=== PATIENT | male | born 1990 ===

== ENCOUNTER 2017-09-26 21:41 | Observation (INO) | payer OTHER ==
--- NOTE | 2017-09-26 23:03 | C.PDOC ---
"History Of Present Illness 27 year old male presents to the ED c/o bilateral feet pain. Patient reports that yesterday he jumped of a porch approximately 1 story height. Patient landed on both his feet, initially able to bear weight now unable to do it. Patient states his left foot is worse than the right one. Patient denies other injuries, back pain, weakness, numbness. Time Seen by Provider: 09/26/17 21:55 Chief Complaint (Nursing): Lower Extremity Problem/Injury History Per: Patient History/Exam Limitations: no limitations Onset/Duration Of Symptoms: Days Current Symptoms Are (Timing): Still Present Recent travel outside of the [place]: No Additional History Per: Patient - Ankle/Foot Description Of Injury: Struck Against Object Currently Unable To: Bear Weight Past Medical History Reviewed: Historical Data, Nursing Documentation, Vital Signs Vital Signs: Last Vital Signs Temp 98.1 F 09/27/17 02:30 Pulse 81 09/27/17 02:30 Resp 20 09/27/17 02:30 BP 136/84 09/27/17 02:30 Pulse Ox 99 09/27/17 02:30 - Medical History PMH: No Chronic Diseases Surgical History: No Surg Hx Family History: States: Unknown Family Hx - Social History Hx Alcohol Use: Yes Hx Substance Use: No - Immunization History Hx Tetanus Toxoid Vaccination: No Hx Influenza Vaccination: No Hx Pneumococcal Vaccination: No Review Of Systems Gastrointestinal: Negative for: Nausea, Vomiting, Abdominal Pain Musculoskeletal: Positive for: Foot Pain (b/l). Negative for: Back Pain Skin: Negative for: Rash Neurological: Negative for: Weakness, Numbness Physical Exam - Physical Exam Appears: Non-toxic, No Acute Distress Skin: Normal Color, Warm, Dry Head: Atraumatic, Normacephalic Eye(s): bilateral: Normal Inspection Oral Mucosa: Moist Neck: Normal Back: Normal Inspection, No Vertebral Tenderness, No Paraspinal Tenderness Extremity: Normal ROM, Tenderness (bilateral calcaneal area), Capillary Refill ( < 2 seconds), No Deformity, No Swelling, Other (achiles tendon area normal bilaterally ) Extremity: Bilateral: Normal Color And Temperature Pulses: Left Dorsalis Pedis: Normal, Right Dorsalis Pedis: Normal Neurological/Psych: Oriented x3, Normal Speech, Normal Motor, Normal Sensation Gait: Unable To Assess ED Course And Treatment - Laboratory Results Result Diagrams: 09/27/17 02:17 09/27/17 02:17 O2 Sat by Pulse Oximetry: 98 (ON RA) Pulse Ox Interpretation: Normal - Other Rad Left heel X-Ray X-Ray: Read By Radiologist Interpretation: EXAM: XR Left Calcaneus, 2 or More Views. CLINICAL HISTORY: 27 years old, male; Injury or trauma; Fall; Initial encounter; Abrasion; Foot; Bilateral; Additional info: Pain b/l feet, jumped one story. TECHNIQUE: Lateral and plantar views of the left calcaneus. COMPARISON: No relevant prior studies available. FINDINGS: Bones/joints: Comminuted left calcaneal fracture, involving the posterior/inferior calcaneus. No. evident extension into the the imaged subtalar joints. No dislocation. Soft tissues: Soft tissue swelling along the plantar aspect of the calcaneus. No radiopaque foreign. body. IMPRESSION: Comminuted left calcaneal fracture without evident intra- articular extension. Recommend orthopedic. consultation. Consider spine imaging in the setting of back pain, given the extensive force required to. previous this fracture. . EXAM : XR Right Calcaneus, 2 or More Views. CLINICAL HISTORY: 27 years old, male; Injury or trauma; Fall; Initial encounter; Abrasion; Foot; Bilateral; Additional info: Pain b/l feet, jumped one story. TECHNIQUE: ROXANN PALMER | Preliminary Radiology Report. CONFIDENTIALITY STATEMENT. This report is intended only for the use of the referring physician, and only in accordance with law, If you received this in error, call [phone]. Page 2 of 2. Lateral and plantar views of the right calcaneus. COMPARISON: No relevant prior studies available. FINDINGS: Bones/joints: Comminuted right calcaneal fracture, involving the posterior/inferior calcaneus. No. evident extension into the the imaged subtalar joints. No dislocation. Soft tissues: Soft tissue swelling along the plantar aspect of the calcaneus. No radiopaque foreign. body. IMPRESSION: Comminuted right calcaneal fracture without evident intra-articular extension. Recommend. orthopedic consultation. Consider spine imaging in the setting of back pain, given the extensive force. required to previous this fracture. Thank you for allowing us to participate in the care of your patient. Dictated and Authenticated by: Dale Tamez DO. 09/26/2017 11:06 PM Eastern Time ([place] & [place]) - CT Scan/US CT lower extremities Other Rad Studies (CT/US): Read By Radiologist, Radiology Report Reviewed CT/US Interpretation: EXAM: CT Left Lower Extremity Without Intravenous Contrast. CLINICAL HISTORY: 27 years old, male; Pain; Ankle and heel; Bilateral; Additional info: B/l calcaneal fractures on xray. TECHNIQUE: Axial computed tomography images of the left lower extremity without intravenous contrast. All CT. scans at this facility use at least one of these dose optimization techniques: automated exposure. control; mA and/or kV adjustment per patient size (includes targeted exams where dose is matched to. clinical indication); or iterative reconstruction. Coronal and sagittal reformatted images were created and reviewed. COMPARISON: No relevant prior studies available. FINDINGS: Bones/joints: Acute comminuted fracture of the left calcaneus is posterior/ medial aspect. No. dislocation. Soft tissues: Soft tissue swelling in the hindfoot. IMPRESSION: Acute fracture of the left calcaneus is posterior/ medial aspect. . EXAM: CT Right Lower Extremity Without Intravenous Contrast. EXAM DATE/TIME: 09/26/2017 11:12 PM. ROXANN PALMER | Preliminary Radiology Report. CONFIDENTIALITY STATEMENT. This report is intended only for the use of the referring physician, and only in accordance with law, If you received this in error, call [phone]. Page 2 of 2. CLINICAL HISTORY: 27 years old, male; Pain; Ankle and heel; Bilateral; Additional info: B/l calcaneal fractures on xray. TECHNIQUE: Axial computed tomography images of the right lower extremity without intravenous contrast. All CT. scans at this facility use at least one of these dose optimization techniques: automated exposure. control; mA and/or kV adjustment per patient size (includes targeted exams where dose is matched to. clinical indication); or iterative reconstruction. Coronal and sagittal reformatted images were created and reviewed. COMPARISON: CR - HEEL 2 VIEWS BI 2017-09-26 22:15. FINDINGS: Bones/joints: Acute comminuted fracture of the right calcaneus is posterior/ medial aspect. No. dislocation. Soft tissues: Soft tissue swelling in the hindfoot. IMPRESSION: Acute fracture of the right calcaneus is posterior/ medial aspect. Thank you for allowing us to participate in the care of your patient. Dictated and Authenticated by: Víctor Moore MD. 09/27 1:04 AM Eastern Time ([place] & [place]) Progress Note: Plan: - left heel X-Ray. - Motrin 600 mg PO. - Motrin 800 mg PO. Paged podiatry resident who came to the ED and placed the patient on bilateral posterior splints. Patient will be admitted for possible surgery tomorrow with podiatry. Spoke with Dr. Carbajal for admission, [facility] agrees to accept the patient to his service Disposition - Disposition Disposition: HOSPITALIZED Disposition Time: 02:15 Condition: GOOD - Clinical Impression Clinical Impression: Bilateral calcaneal fractures - PA / ASSEMBLER BRAZER / Resident Statement MD/DO has reviewed & agrees with the documentation as recorded. - Scribe Statement The provider has reviewed the documentation as recorded by the Scribe Valentin Ko All medical record entries made by the Scribe were at my direction and personally dictated by me. I have reviewed the chart and agree that the record accurately reflects my personal performance of the history, physical exam, medical decision making, and the department course for this patient. I have also personally directed, reviewed, and agree with the discharge instructions and disposition."
--- NOTE | 2017-09-27 01:59 | CP.PCM.CON ---
History of Present Illness - History of Present Illness History of Present Illness: Podiatry Consult Note for Dr. Alexandra 27M with no known PMHx seen and evaluated in ED for b/l heel pain after jumping from a second story balcony yesterday afternoon. Patient states that he landed on concrete without shoes and was immediately unable to weight bear on either side. He states that his pain is improved today over yesterday but he is still unable to bear weight. He states that he has been icing, elevating and applying heat to both heels and has not taken any oral medication to try and alleviate his pain. He denies pain to any other part of his foot, ankle, leg, knee, hip or lower back. He denies any tingling or numbness to either foot. Patient is AAO x 3 and NAD at time of visit accompanied by his girlfriend and a police booking officer. Patient is seen cuffed to bed at time of examination. Patient denies any further pedal complaints at this time. Denies any recent N/V/F/C/CP/SOB/D/ posterior calf pain Meds: Denies All: NKDA PSH: Denies FH: Unremarkable SH: Denies tobacco use, social EtOH, social marijuana use Review of Systems - Review of Systems All systems: reviewed and no additional remarkable complaints except Review of Systems: as per HPI Past Patient History - Past Social History Smoking Status: Never Smoked - PSYCHIATRIC Hx Substance Use: No - SURGICAL HISTORY Hx Surgeries: No Meds Allergies/Adverse Reactions: Allergies Allergy/AdvReac Type Severity Reaction Status Date / Time No Known Allergies Allergy Unverified 09/26/17 21:50 Physical Exam - Constitutional Appears: Well, Non-toxic, No Acute Distress - Extremities Exam Additional comments: LE focused exam: Vasc: DP/PT pulses fully palpable 2/4 b/l. Skin temperature warm to warm from proximal to distal. CFT < 3 seconds to all digits. Minimal edema noted to b/l heels Neuro: Epicritic and protective sensation grossly intact b/l Derm: Minimal ecchymosis noted to b/l heels. No fracture blisters appreciated b/ l. Otherwise no open lesions, wounds, maceration, xerosis, abnormal pigmentation or abnormal growths noted b/l MSK: POP to b/l heels. Pain with heel squeeze b/l. No POP to digits, lis franc joint/ligament, medial or lateral malleoli, achilles tendon, navicular tuberosity or fifth metatarsal base. ROM at ankle and STJ limited secondary to guarding. MMT limited secondary to guarding. No gross deformities appreciated. - Neurological Exam Neurological exam: Alert, Oriented x3 - Psychiatric Exam Psychiatric exam: Normal Affect, Normal Mood Results - Vital Signs Recent Vital Signs: Last Vital Signs Temp 98.4 F 09/26/17 21:44 Pulse 104 H 09/26/17 21:44 Resp 20 09/26/17 21:44 BP 146/85 09/26/17 21:44 Pulse Ox 98 09/27/17 01:23 Assessment & Plan - Assessment and Plan (Free Text) Assessment: 27M seen in ED for b/l displaced calcaneal fractures Plan: Patient seen and evaluated Plan discussed with attending Dr. Alexandra Xrays reviewed: B/l fractures of the medial calcaneal tubercle with mild displacement CT reviewed: B/l fractures of the medial calcaneal tubercle with mild displacement Posterior splint appled to b/l LE Patient admitted to floors under Hospitalist care Will f/u with patient and Dr. Alexandra in AM to determine possible surgical intervention Medical optimization needed Patient to remain NWB at all time Ice and elevated as much as possible Podiatry will continue to follow - Date & Time Date: 09/27/17 Time: 02:05
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
[2017-09-27 02:29] LABS: INR 1.13 (0.92-1.08); PROTHROMBIN TIME 12.4 SECONDS (9.7-12.2)
[2017-09-27] MEDS: Sodium Chloride 0.9% 1,000 ML IV SCH ×2 (02:30→15:49)
[2017-09-27 02:33] LABS: HEMOGLOBIN 16.3 g/dL (12.0-18.0); MEAN CELL VOLUME 91.7 fL (80.0-94.0); MEAN CORPUSCULAR HEMOGLOBIN 31.7 pg (27.0-31.0); MEAN CORPUSCULAR HGB CONC 34.6 g/dL (33.0-37.0); RBC 5.15 Mil/uL (4.40-5.90); WHITE BLOOD COUNT 8.9 K/uL (4.8-10.8)
[2017-09-27 02:34] LABS: BASO % 0.5 % (0.0-2.0); EOS # 0.1 K/uL (0.0-0.7); EOS % 0.6 % (0.0-4.0); LYMPH # 1.1 K/uL (1.0-4.3); LYMPH % 12.8 % (20.0-40.0); MEAN PLATELET VOLUME 8.7 fL (7.2-11.7); MONO # 0.7 K/uL (0.0-0.8); MONO % 7.5 % (0.0-10.0); RED CELL DISTRIBUTION WIDTH 12.9 % (11.5-14.5)
[2017-09-27 02:50] LABS: ALB/GLOB RATIO 1.6 (1.0-2.1); ALBUMIN 4.6 g/dL (3.5-5.0); ALT/SGPT 37 U/L (21-72); AST/SGOT 23 U/L (17-59); BLOOD UREA NITROGEN 16 mg/dL (9-20); CALCIUM 9.4 mg/dl (8.6-10.4); GFR AFRICAN-AMERICAN > 60; GFR NON-AFRICAN AMERICAN > 60
[2017-09-27 06:51] LABS: BASO # 0.1 K/uL (0.0-0.2); BASO % 0.7 % (0.0-2.0); EOS # 0.1 K/uL (0.0-0.7); EOS % 1.2 % (0.0-4.0); HEMOGLOBIN 15.6 g/dL (12.0-18.0); LYMPH # 1.6 K/uL (1.0-4.3); LYMPH % 19.8 % (20.0-40.0); MEAN CELL VOLUME 92.3 fL (80.0-94.0); MEAN CORPUSCULAR HEMOGLOBIN 32.1 pg (27.0-31.0); MEAN CORPUSCULAR HGB CONC 34.7 g/dL (33.0-37.0); MEAN PLATELET VOLUME 9.2 fL (7.2-11.7); MONO # 0.7 K/uL (0.0-0.8); MONO % 8.9 % (0.0-10.0); NEUT # 5.5 K/uL (1.8-7.0); NEUT % 69.4 % (50.0-75.0); NRBC % 0.1 % (0.0-2.0); RBC 4.87 Mil/uL (4.40-5.90); RED CELL DISTRIBUTION WIDTH 12.9 % (11.5-14.5); WHITE BLOOD COUNT 7.9 K/uL (4.8-10.8)
--- NOTE | 2017-09-27 08:03 | RAD ---
Date of service: 09/27/2017 HISTORY: Preoperative examination COMPARISON: No prior. FINDINGS: LUNGS: The lungs are well inflated and clear. PLEURA: No significant pleural effusion identified, no pneumothorax apparent. CARDIOVASCULAR: Normal. OSSEOUS STRUCTURES: No significant abnormalities. VISUALIZED UPPER ABDOMEN: Normal. OTHER FINDINGS: None. IMPRESSION: No active pulmonary disease.
[2017-09-27 08:06] LABS: ALB/GLOB RATIO 1.6 (1.0-2.1); ALBUMIN 4.4 g/dL (3.5-5.0); ALT/SGPT 39 U/L (21-72); AST/SGOT 24 U/L (17-59); BLOOD UREA NITROGEN 17 mg/dL (9-20); CALCIUM 9.1 mg/dl (8.6-10.4); GFR AFRICAN-AMERICAN > 60; GFR NON-AFRICAN AMERICAN > 60
--- NOTE | 2017-09-27 09:13 | RAD ---
Date of service: 09/26/2017 PROCEDURE: Radiographs of the bilateral calcaneus/hindfoot. HISTORY: pain b/l feet, jumped one story COMPARISON: None available. TECHNIQUE: Frontal and lateral radiographs of bilateral calcaneus. FINDINGS: Acute comminuted nondisplaced fractures in bilateral posterior calcaneus. Bone alignment is normal. No dislocation. IMPRESSION: Acute comminuted nondisplaced fractures in bilateral posterior calcaneus.
--- NOTE | 2017-09-27 09:21 | CT ---
CT bilateral calcaneus History: Fractures. Comparison: X-ray dated 09/26/2017 Technique: Multiple contiguous axial images were performed through the bilateral calcaneus without the use of intravenous contrast. Subsequently, sagittal and coronal reformatted images were obtained. This CT exam was performed using one or more of the following dose reduction techniques: Automated exposure control, adjustment of the mA and/or kV according to patient size, and/or use of iterative reconstruction technique. Findings: Left calcaneus: Acute comminuted fracture of the left calcaneus at the posterior medial aspect. Type 1 os navicularis variant noted. Question lucency through base of the middle cuneiform bone of the left foot on series 2, image 54 may represent a prominent vascular groove versus nondisplaced osseous injury. Clinical correlation. Correlation with MRI may be helpful for further evaluation if clinically indicated at this level. Soft swelling in the hindfoot. Right calcaneus: Acute comminuted fracture of the right calcaneus at the posterior medial aspect. Soft tissue swelling in the hindfoot. Impression: Acute fractures of the bilateral calcaneus as described above. Question lucency through the base of the middle cuneiform bone of the left foot on series 2, image 54 may represent a prominent vascular groove versus nondisplaced osseous injury. Clinical correlation. Correlation with MRI may be helpful for further evaluation if clinically indicated at this level. These findings were preliminarily reported at 1:04 a.m. on 09/27/[address] Víctor Moore from [facility].
[2017-09-27] MEDS ORDERED: Potassium Chloride 20 mEq ER Tab PO SCH (10:00)
--- NOTE | 2017-09-27 10:36 | CP.PCM.PN ---
Subjective - Date & Time of Evaluation Date of Evaluation: 09/27/17 Time of Evaluation: 10:33 - Subjective Subjective: Podiatry Progress Note - Dr. Alexandra 27M seen and evaluated for bilateral displaced calcaneal fracture requiring surgical intervention. Patient is seen resting in bed, in NAD, and AA0x3. pharmaceutical officer seen at bedside. Patient reports pain to the bilateral heels. Rates the pain 9/10 and describes the pain as a throbbing pain localized to the heels. Reports have not received any medication for the pain. Patient reports he has been NWB in the posterior splint since applied. Denies numbness and tingling. Denies nausea, fever, shortness of breath, chest pains or chills. Objective - Vital Signs/Intake and Output Vital Signs (last 24 hours): Temp Pulse Resp BP Pulse Ox 97.4 F L 68 18 118/70 98 09/27/17 07:00 09/27/17 07:00 09/27/17 07:00 09/27/17 07:00 09/27/17 07:00 - Medications Medications: Current Medications Aspirin (Aspirin Chewable) 81 mg PO DAILY [facility] Sodium Chloride (Sodium Chloride 0.9%) 1,000 mls @ 75 mls/hr IV .[id number] [facility] Last Admin: 09/27/17 02:30 Dose: 75 mls/hr Ibuprofen (Motrin Tab) 600 mg PO Q6H PRN PRN Reason: Pain, moderate (4-7) Potassium Chloride (K-Dur 20 Meq Er Tab) 40 meq PO DAILY [facility] - Labs Labs: 09/27/17 06:45 09/27/17 06:45 PT 12.4 SECONDS (9.7-12.2) H 09/27/17 02:17 INR 1.13 (0.92-1.08) H 09/27/17 02:17 APTT 34 SECONDS (21-34) 09/27/17 02:17 - Constitutional Appears: Well, Non-toxic, No Acute Distress - Extremities Exam Extremities Exam: absent: Calf Tenderness Additional comments: Posterior splint clean dry and intact Digital AROM 1-5 WNL bilaterally Able to wiggle toes No calf pain or tenderness with palpation - Neurological Exam Neurological Exam: Alert, Awake, Oriented x3 - Psychiatric Exam Psychiatric exam: Normal Affect, Normal Mood Assessment and Plan - Assessment and Plan (Free Text) Assessment: 27M seen and evaluated for bilateral displaced calcaneal fracture requiring surgical intervention. Plan: Patient seen and evaluated Plan discussed with attending Dr. Alexandra Xrays reviewed: B/l fractures of the medial calcaneal tubercle with mild displacement CT reviewed: B/l fractures of the medial calcaneal tubercle with mild displacement Patient will be scheduled for surgery next week Medical optimization needed, please provide medical clearance. Thank you Patient to remain NWB at all time to the lower extremity in wheel chair Continue RICE protocol While in house please ICE and ELEVATE as much as possible Podiatry will continue to follow while in house Applied Dean compression with posterior splint to bilateral lower extremity Patient is stable per podiatry standpoint Will schedule patient for outpatient surgery next week Upon discharge, Patient to remain NWB at all time to the lower extremity in wheel chair Physical therapy to educate patient on transfers from wheelchair to car/bed Continue RICE protocol REST, ICE and ELEVATE as much as possible Please dispense outpatient aspirin to take as prophylaxis Patient to follow up in podiatry clinic this SATURDAY Patient needs to call for an appointment Saturday Will call patient about time and date of surgery next week Numbers obtained from patient: [id number] (vs [id number] in chart), [phone] ( Alyssa) Thank you for allowing us to participate in patient's care.
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
[2017-09-27 16:04] VITALS: BP 129/87; PULSE 69; RESP 20; TEMP 98.4; O2SAT 100
--- NOTE | 2017-09-30 08:02 | CARD ---
APPROVED REPORT Date of service: 09/27/2017 EKG Measurement Heart [id number] <Conclusion> Normal sinus rhythm with sinus arrhythmia Normal ECG
--- NOTE | 2017-09-30 08:02 | CARD ---
APPROVED REPORT Date of service: 09/27/2017 EKG Measurement Heart [id number] <Conclusion> Normal sinus rhythm Normal ECG
== END 2017-09-27 20:00 ==
LOC: C.ER 21:41 → C.6T 09-27 01:42
PROVIDERS: ADMIT Family Medicine; ATTEND Family Medicine
DX: S92.001A Unspecified fracture of right calcaneus, initial encounter for closed fracture (principal); W13.0XXA Fall from, out of or through balcony, initial encounter; Y93.39 Activity, other involving climbing, rappelling and jumping off
CPT/HCPCS: 36415; 71045; 73650; 73700; 80053; 83735; 84100; 85025; 85610; 85730; 97162; 97530; 97542; 99285; G0378; G8978; G8979; G8980; J3480; J7030

== ENCOUNTER 2017-11-19 10:27 | Emergency (ER) | payer OTHER ==
[2017-11-19 10:46] VITALS: BP 120/75; PULSE 70; RESP 18; TEMP 98.3; O2SAT 98
== END 2017-11-19 11:47 | disposition left against medical advice (07) ==
LOC: C.ER 10:27
DX: Z02.89 Encounter for other administrative examinations (principal)